=== PATIENT | male | born 1985 | race Caucasian/White ===

== ENCOUNTER 2016-09-04 08:06 | Outpatient (CLI) | payer BC ==
--- NOTE | 2016-09-04 10:29 | DIAGNOSTIC IMAGING REPORT ---
PROCEDURE: US ABDOMEN ULTRASOUND-COMPLETE INDICATION: DISCORDER OF STOMACH TECHNIQUE: Stephen scale and color Doppler sonographic images of the abdomen were obtained. COMPARISON: CT chest 12/11/2008. FINDINGS: Liver measures 17.7 cm. There is a 5.5 cm heterogeneous left hepatic lobe mass ([address] scan) suggestive of a hemangioma. There is an additional 1.1 cm echogenic lesion in the left hepatic lobe suggestive of an additional hemangioma. There appears to be focal sparing adjacent to the gallbladder. 6 mm gallbladder polyp. Normal CBD, 4.2 mm. Normal pancreas and spleen. Aorta and IVC are patent. Normal hepatopetal flow. Normal kidneys. Right kidney measures 10.7 cm and left kidney 11 cm. IMPRESSION: 1. 5.5 cm heterogeneous left hepatic lobe lesion ([address] scan 12/11/2008) with additional 1.1 cm left hepatic lobe echogenic lesion. These are most consistent with hemangiomas 2. Gallbladder polyp
== END 2016-09-05 15:15 | disposition home or self-care (01) ==
LOC: US SRH 08:06
DX: K31.9 Disease of stomach and duodenum, unspecified (principal); K76.9 Liver disease, unspecified; K82.4 Cholesterolosis of gallbladder